=== PATIENT | female | born 1950 | race Caucasian/White ===

== ENCOUNTER 2022-05-19 13:28 | Emergency (ER) | payer MEDICARE, OTHER ==
[~2022-05-19] VITALS: Ht 157.5 cm; Wt 67.0 kg
[~2022-05-19 13:28] MED LIST: CYCL-1 PO; TOPI25TA15 PO; VENL150C4 PO
[2022-05-19 16:04] VITALS: BP 158/98
== END 2022-05-19 16:26 | disposition home or self-care (01) ==
LOC: ER 13:29
DX: I10 Essential (primary) hypertension (principal); Z88.2 Allergy status to sulfonamides
CPT/HCPCS: 99281

== ENCOUNTER 2025-03-24 08:31 | Outpatient (CLI) | payer MEDICARE ==
[~2025-03-24 08:31] MED LIST changes: -VENL150C4 PO; +VENL150C5 PO
--- NOTE | 2025-03-24 10:18 | RADIOLOGY REPORT ---
PROCEDURE: MRI OF THE BRAIN WITHOUT CONTRAST. CLINICAL INDICATION: OTHER AMNESIA;MEMORY LOSS TECHNIQUE: Multiplanar, multi sequence MRI of the brain was performed without intravenous contrast. COMPARISON: None FINDINGS: The signal characteristics of the brain parenchyma is within normal limits. There are periventricular and subcortical T2/FLAIR white matter hyperintensities. There are no areas of restricted diffusion to suggest acute infarct. No evidence of space occupying mass lesion, extra-axial collections or hemorrhage is noted. The ventricles, sulci and basal cisterns are intact. There is no signal abnormality in the posterior fossa. The paranasal sinuses and mastoid air cells are well pneumatized. The orbits and nasopharynx are intact. The osseous structures are intact. The vessels of the skull base demonstrate signal void consistent with patency. IMPRESSION: 1. No acute intracranial abnormality. 2. T2/FLAIR white matter hyperintensities, nonspecific but most commonly associated with sequelae of chronic microvascular ischemic changes although other etiologies are not excluded.
== END 2025-03-24 23:59 | disposition home or self-care (01) ==
LOC: MRI 08:31
DX: R41.3 Other amnesia (principal)
CPT/HCPCS: 70551